=== PATIENT | female | born 1950 | race Caucasian/White ===

== ENCOUNTER → 2023-08-24 12:29 | Outpatient (REF) | payer MEDICARE, OTHER, SELFPAY | LOC: WDC 12:29 | PROVIDERS: ATTENDING PHYSICIAN Obstetrics & Gynecology; FAMILY PHYSICIAN Family Medicine | DX: Z12.31 Encounter for screening mammogram for malignant neoplasm of breast (principal) | CPT/HCPCS: 77063; 77067 ==

== ENCOUNTER 2024-01-24 11:11 | Emergency (ER) | payer MEDICARE, OTHER, SELFPAY ==
[2024-01-24 11:20] VITALS: BP 177/76
[2024-01-24 11:38] LABS: % Basophils 0.3 % (0-2); % Eosinophils 0.7 % (0-6); % Immature Granulocytes 0.2 % (0-0.5); % Lymphocytes 12.7 % (20.5-51.1); % Monocytes 8.6 % (1.7-9.3); % Neutrophils 77.5 % (42.2-75.2); Absolute Eosinophils 0.1 10^3/uL (0-0.7); Absolute Lymphocytes 1.2 10^3/uL (1.2-3.4); Absolute Monocytes 0.8 10^3/uL (0.1-0.6); Absolute Neutrophils 7.1 10^3/uL (1.4-6.5); Hematocrit 37.7 % (37.0-47.0); Hemoglobin 12.4 g/dL (12.0-16.0); Mean Corp Hgb Conc. 32.9 g/dL (33.0-37.0); Mean Corpuscular Hgb 29.7 pg (27.0-31.0); Mean Corpuscular Volume 90.4 fL (81.0-99.0); Nucleated Red Blood Cells % 0 %; Platelet Count 291 10^3/uL (130-400); Red Blood Cell Count 4.17 10^6/uL (4.20-5.40); Red Cell Dist. Width 13.7 % (11.5-14.5); White Blood Cell Count 9.1 10^3/uL (4.8-10.8)
[2024-01-24 12:17] LABS: ALT (SGPT) 29 U/L (0-35); AST (SGOT) 35 U/L (14-36); Albumin 4.4 g/dl (3.5-5.0); Alkaline Phosphatase 72 U/L (38-126); Blood Urea Nitrogen 18 mg/dl (7-17); Calcium 9.6 mg/dl (8.4-10.2); Carbon Dioxide 29 mmol/L (22-30); Chloride 103 mmol/L (98-107); Glucose 113 mg/dl (70-99); Potassium 3.9 mmol/L (3.5-5.1); Sodium 140 mmol/L (135-145); Total Bilirubin 0.4 mg/dl (0.2-1.3); eGFR > 60.00
[2024-01-24 12:27] LABS: Troponin I < 0.012 ng/ml
[2024-01-24 13:53] VITALS: BP 138/85
[2024-01-24 14:00] VITALS: BP 110/88
[2024-01-24 14:01] VITALS: BMI 27.1
--- NOTE | 2024-01-24 14:35 | ED.GENMED ---
History of Present Illness
General
Chief Complaint: Chest Pain
Source: patient
Exam Limitations: none
Time Seen by Provider: 01/24/24 14:35
Nursing documentation reviewed up to this point in time: agreed with
History of Present Illness
History of Present Illness:
73-year-old female with history of HTN presents for squeezing feeling in chest which started 2 days ago intermittent fleeting, awakened 5 a.m. today with 8/10 mid sternal pain that 'I think I felt it both sides of my neck and in my back.' Pain now
4/10. Denies SOB, n/v/d/c, denies diaphoresis, lightheadedness or dizziness.
Past History
Past History
ED Past Medical History: HTN
ED Past Surgical History: Appendectomy, and Orthopedic
Social History
Tobacco: Non-smoker
Alcohol: None
Personal:
Living: with family
Review of Systems
Review of Systems
Allergies reviewed?: Yes
All Other Systems: ROS reviewed and negative except as documented in HPI and ROS
Constitutional: Denies fever or fatigue
Respiratory: Denies trouble breathing
Cardiac: Reports chest pain; Denies diaphoresis or palpitations
ABD/GI: Denies abdominal pain, nausea, vomiting or diarrhea
: Denies dysuria or difficulty voiding
Musculoskeletal: Reports no symptoms
Skin: Reports no symptoms
Neurological: Reports no symptoms
Phy Exam
Physical Exam
Physical Exam:
GENERAL: No acute distress. A&Ox3.
CONSTITUTIONAL: Afebrile.
EYES: PERRL, conjunctivae normal
ENMT: moist mucus membranes, Pharynx nl
RESPIRATORY: Regular respirations, nonlabored, lungs clear.
CARDIOVASCULAR: Regular rate and rhythm, no murmurs, no rubs.
GI: Soft, nontender, normal BS
MUSCULOSKELETAL: Moves with ease. Well perfused.
SKIN: Warm, dry, pink
PSYCH: Normal mood and affect. Well kept, interactive and appropriate
NEUROLOGIC: Awake, alert and oriented. No focal neurological deficits
Course
Orders/Labs/Results
Orders:
Orders
01/24/24 11:12
ECG [Electrocardiogram (*1)] Urgent
Reason for Study: Chest Pain
EKG- Treatment ONCE
01/24/24 11:28
Comprehensive Metabolic Panel Urgent
01/24/24 11:29
Complete Blood Count/With Diff Urgent
Troponin I Urgent
01/24/24 14:37
CR Chest - 2 Views Urgent
Comment:
Reason For Exam: chest pain
01/24/24 15:06
Troponin I Urgent
Abnormal Lab Results
01/24/24 01/24/24
11 11:29
RBC 4.17 L 10^6/uL
(4.20-5.40)
MCHC 32.9 L g/dL
(33.0-37.0)
Absolute Neuts (auto) 7.1 H 10^3/uL
(1.4-6.5)
Absolute Monos (auto) 0.8 H 10^3/uL
(0.1-0.6)
Neutrophils % 77.5 H %
(42.2-75.2)
Lymphocytes % 12.7 L %
(20.5-51.1)
BUN 18 H mg/dl
(7-17)
Glucose 113 H mg/dl
(70-99)
01/24/24 11:29
01/24/24 11:28
Vital Signs
Initial and Last Documented VS:
Initial Vital Signs
Temp Pulse Resp BP Pulse Ox
98.0 F 94 16 177/76 98
01/24/24 11:20 01/24/24 11:20 01/24/24 11:20 01/24/24 11:20 01/24/24 11:20
Last Documented Vital Signs
Temp Pulse Resp BP Pulse Ox
98.0 F 76 14 140/70 96
01/24/24 11:20 01/24/24 14:30 01/24/24 14:30 01/24/24 15:41 01/24/24 14:30
MDM/Problems Addressed
Differential Diagnosis Includes:
MIMI, MS, GERD
MDM/Problems Addressed:
73-year-old female with history of HTN presents for squeezing feeling in chest which started 2 days ago intermittent fleeting, awakened 5 a.m. today with 8/10 mid sternal pain that 'I think I felt it both sides of my neck and in my back.' Pain now
10. Denies SOB, n/v/d/c, denies diaphoresis, lightheadedness or dizziness.
EKG: NSR
Pain started 2 days ago mildly and intermittent, was at its worse 5 a.m. today
CBC, CMP unremarkable
Troponin WNL
3:40 p.m.
Troponin #2 WNL
Pt denies hx GERD but saw ENT Dr. Mays at one time for jaw pain and diagnosed her with GERD, told her to take Omeprazole which she has at home but doesn't take as she never had reflux before.
Instructed to start her Omeprazole and let health teacher know if it helps
Pt referred to Cardiac Hotline
Chronic conditions affecting care: HTN
ED Attending Note
-
Portions of this chart may have been created with voice recognition software.� Occasional wrong word or��sound alike� substitutions may have occurred due to the inherent limitations of voice recognition software.
Discharge Plan
Departure
Patient Disposition: Home (Routine Discharge)
Date of Disposition: 01/24/24
Time of Disposition: 15:36
Patient with high blood pressure during this ER visit?: No
Condition: Good
Discharge Problem:
Atypical chest pain
Instructions: Chest Pain That Is Not Caused by the Heart (DC), Acid Reflux and GERD in Adults (DC), Chest Pain DCA Follow Up
Referrals:
Miguel Mao MD [Active] - Keep scheduled appt
Activity Restrictions/Additional Instructions:
As we discussed, your workup here today shows nothing worrisome, specifically no sign of a heart attack.
Take your omeprazole daily and let the health teacher know if it helps
Someone from the cardiology group will call you to set up an appointment for more thorough cardiac evaluation.
Return here immediately for worsening chest pain or chest pain associated with breaking out in a sweat, nausea or vomiting, feeling lightheaded or dizzy or feeling sicker in any way.
Interventions
Interventions:
*Risk Screen - Suicide Last Done: 01/24/24 11:20
*General Assessment Last Done: 01/24/24 14:01
*Neglect/Abuse Screening Last Done: 01/24/24 11:20
ED- Fall Risk Assessment Last Done: 01/24/24 16:08
*Nursing Disposition Last Done: 01/24/24 16:08
ED- Cardiac Assessment Last Done: 01/24/24 14:01
Discharge Date and Time
Discharge Date/Time: 01/24/24 16:10
Print Language: FINNISH
[2024-01-24 15:34] LABS: Troponin I < 0.012 ng/ml
[2024-01-24 15:41] VITALS: BP 140/70
== END 2024-01-24 16:10 | disposition home or self-care (01) ==
LOC: EMR 11:11
PROVIDERS: Emergency Medicine; Registered Nurse; EMERGENCY PHYSICIAN Student in an Organized Health Care Education/Training Program; FAMILY PHYSICIAN Specialist
DX: R07.89 Other chest pain (principal); I10 Essential (primary) hypertension; Z90.49 Acquired absence of other specified parts of digestive tract
CPT/HCPCS: 99285; 71046; 80053; 84484; 85025; 93005